=== PATIENT | female | born 1995 | race Caucasian/White ===

== ENCOUNTER 2018-01-23 07:44 | Inpatient (IN) | payer OTHER ==
[2018-01-22 10:33] LABS: RPR Titer ND
[2018-01-22 10:37] LABS: Absolute Lymphocytes (CBC) 1.9 K/uL (0.7-4.9); Absolute Monocytes 0.4 K/uL (0.1-1.3); Absolute Neutrophil 5.6 K/uL (1.8-8.0); Basophils % 2.4 % (0-1.3); Eosinophils % 1.6 % (0-4.4); Hematocrit 35.5 % (36.0-45.0); Lymphocytes % 23.4 % (15.3-44.8); MCH 28.1 pg (27.0-35.0); MCV 82.6 fL (80-100); MPV 8.6 fL (7.6-11.3); Monocytes % 4.6 % (3.3-12.3); Urine Appearance CLOUDY; Urine Bilirubin NEGATIVE (NEG); Urine Blood NEGATIVE (NEG); Urine Color YELLOW; Urine Glucose NEGATIVE (NEG); Urine Protein NEGATIVE (NEG); Urine Specific Gravity 1.025 (1.005-1.030)
[2018-01-22 10:47] LABS: Urine Microscopic Reflex ORDER UMIC
[2018-01-22 10:48] LABS: Urine Bacteria <20 /HPF (<20); Urine Culture Reflex Order NOT NEEDED; Urine Mucus 2+ /HPF (NONE SEEN); Urine RBC <5 /HPF (NONE SEEN)
[2018-01-22 20:36] LABS: RPR (Rapid Plasma Reagin) NON-REACT (NON-REACT)
[~2018-01-23 07:44] MED LIST: CEFAZOLIN/SWI 1gm 1 GM/10 ML SYR IVP SCH
--- OUTSIDE RECORDS SUMMARY | 2018-01-23 07:46 | XMS REPORT ---
:1995 Author Organization eClinicalWorks Care Team Providers Name Role Phone Tom Butler Provider Role Unavailable Allergies No Known Allergies Problems Problem Type Condition Code Onset Dates Condition Status Assessment Pelvic and perineal pain R10.2 Active Problem Pelvic and perineal pain R10.2 Active Problem Encounter for supervision of normal Z34.03 Active first in third trimester Problem Other specified related O26.893 Active conditions, third trimester Assessment Encounter for supervision of normal Z34.03 Active first in third trimester Assessment Other specified related O26.893 Active conditions, third trimester Problem Stasis dermatitis of both legs I87.2 Active Problem Encounter for supervision of normal Z34.02 Active first in second trimester Medications Medication Code Code Instructions Start End Status Dosage System Date Date CitraNatal 90 [facility] [id number] 90-1 & 300 MG October Active as directed DHA Orally once 2017 daily Results No Known Results Summary Purpose [facility] Submission
--- OUTSIDE RECORDS SUMMARY | 2018-01-23 07:46 | XMS REPORT ---
[...] Status Dosage System Date Date CitraNatal 90 [facility] [id number] 90-1 & 300 MG October Active as directed DHA Orally once 2017 daily Results No Known Results Summary Purpose [employer] Submission
--- OUTSIDE RECORDS SUMMARY | 2018-01-23 07:46 | XMS REPORT ---
[...] Status Dosage System Date Date CitraNatal 90 [facility] [id number] 90-1 & 300 MG October Active as directed DHA Orally once 2017 daily Results No Known Results Summary Purpose [employer] Submission
--- OUTSIDE RECORDS SUMMARY | 2018-01-23 07:46 | XMS REPORT ---
:1995 Author Organization eClinicalWorks Care Team Providers Name Role Phone Tom Butler Provider Role Unavailable Allergies No Known Allergies Problems Problem Type Condition Code Onset Dates Condition Status Problem Pelvic and perineal pain R10.2 Active Problem Encounter for supervision of normal Z34.03 Active first in third trimester Problem Other specified related O26.893 Active conditions, third trimester Problem Stasis dermatitis of both legs I87.2 Active Problem Encounter for supervision of normal Z34.02 Active first in second trimester Medications No Known Medications Results No Known Results Summary Purpose [employer] Submission
--- OUTSIDE RECORDS SUMMARY | 2018-01-23 07:46 | XMS REPORT ---
:1995 Author Organization e[employer]Works Care Team Providers Name Role Phone Tom Butler Provider Role Unavailable Allergies No Known Allergies Problems Problem Type Condition Code Onset Dates Condition Status Assessment Other specified related O26.893 Active conditions, third trimester Assessment Stasis dermatitis of both legs I87.2 Active Assessment Encounter for supervision of normal Z34.03 Active first in third trimester Assessment Pelvic and perineal pain R10.2 Active Problem Pelvic and perineal pain R10.2 Active Problem Encounter for supervision of normal Z34.03 Active first in third trimester Problem Other specified related O26.893 Active conditions, third trimester Assessment Encounter for supervision of normal Z34.93 Active in third trimester, unspecified Assessment Encounter for supervision of normal Z34.02 Active first in second trimester Problem Stasis dermatitis of both legs I87.2 Active Problem Encounter for supervision of normal Z34.02 Active first in second trimester Medications Medication Code Code Instructions Start End Status Dosage System Date Date CitraNatal 90 [facility] [id number] 90-1 & 300 MG October Active as directed DHA Orally once 2017 daily Results No Known Results Immunizations Vaccine Administration Date TDAP > 7 Years-Adacel January 04, 2018 Summary Purpose [employer]ClinicalWorks Submission
--- OUTSIDE RECORDS SUMMARY | 2018-01-23 07:46 | XMS REPORT ---
:1995 Author Organization eClinicalWorks Care Team Providers Name Role Phone Tom Butler Provider Role Unavailable Allergies No Known Allergies Problems Problem Type Condition Code Onset Dates Condition Status Assessment Encounter for supervision of Z34.03 Active normal first in third trimester Assessment Encounter for supervision of Z34.02 Active normal first in second trimester Assessment Stasis dermatitis of both legs I87.2 Active Problem Other specified related O26.893 Active conditions, third trimester Problem Pelvic and perineal pain R10.2 Active Problem Breech presentation, single or O32.1XX0 Active unspecified fetus Problem Encounter for supervision of Z34.02 Active normal first in second trimester Assessment Encounter for supervision of Z34.93 Active normal in third trimester, unspecified Problem Encounter for supervision of Z34.03 Active normal first in third trimester Problem Stasis dermatitis of both legs I87.2 Active Assessment Breech presentation, single or O32.1XX0 Active unspecified fetus Assessment Pelvic and perineal pain R10.2 Active Assessment Other specified related O26.893 Active conditions, third trimester Medications Medication Code Code Instructions Start End Status Dosage System Date Date CitraNatal 90 [facility] [id number] 90-1 & 300 MG October Active as directed DHA Orally once 2017 daily Results No Known Results Summary Purpose [employer]ClinicalWorks Submission
--- OUTSIDE RECORDS SUMMARY | 2018-01-23 07:46 | XMS REPORT ---
[...] Status Dosage System Date Date CitraNatal 90 [facility] [id number] 90-1 & 300 MG October Active as directed DHA Orally once 2017 daily Results No Known Results Summary Purpose eClinicalWorks Submission
[2018-01-23] MEDS ORDERED: Ringers Lactate 1,000 ML IV PRN (07:48)
[2018-01-23] MEDS ORDERED: NA CIT/CITRIC AC 30 ML ORAL UDC PO ONE (07:50)
[2018-01-23] MEDS ORDERED: FAMOTIDINE 20 MG/2 ML VIAL IV ONE (07:52)
[2018-01-23] MEDS ORDERED: METOCLOPRAMIDE 10 MG/2mL INJ IV SCH (08:00)
[2018-01-23] MEDS ORDERED: Ringers Lactate 1,000 ML IV SCH (08:00)
[2018-01-23 09:19] VITALS: BMI 35.3
[2018-01-23] MEDS ORDERED: OXYTOCIN 10 UNIT/ML ML IV ONE ×2 (09:53→10:52)
[2018-01-23] MEDS ORDERED: MORPHINE SULFATE/PF 1 MG/ML (10 ML AMP) ONE (09:53)
[2018-01-23] MEDS ORDERED: Oxycodone HCl/Acetaminophen 1 TAB TAB PO PRN (11:12)
[2018-01-23] MEDS ORDERED: METHYLERGONOVINE 0.2 MG TAB PO PRN (11:12)
[2018-01-23] MEDS ORDERED: MEASLES,MUMPS,RUBELLA VAC 0.5ML SQVAC ONE (11:12)
[2018-01-23] MEDS ORDERED: ONDANSETRON 4 MG (ODT) TAB PO PRN (11:12)
[2018-01-23] MEDS ORDERED: ACETAMINOPHEN 500 MG TAB PO PRN (11:12)
[2018-01-23] MEDS ORDERED: DOCUSATE NA/SENNA CONC 1 TAB PO PRN (11:12)
[2018-01-23] MEDS ORDERED: ZOLPIDEM TARTRATE 5 MG TABLET PO PRN (11:12)
[2018-01-23] MEDS ORDERED: BISACODYL 10 MG RECTAL SUPP RECT PRN (11:12)
--- NOTE | 2018-01-23 11:29 | P.OP ---
Chief Fundraising Officer: Kerrie Marquis Preoperative diagnosis: 39 weeks gestation with Breech presentation Postoperative diagnosis: same Primary procedure: Primary low transverse section Secondary procedure: none Anesthesia: Spinal Estimated blood loss: 800cc Specimen: cord blood, placenta Findings: male infant, bethany breech presentation Operative Technique: After informed consent was obtained and all questions were answered to the patient's satisfaction in layman's terms, she was taken to the operating room where a spinal with Astramorph anesthesia was obtained without any difficulty. She was placed in the dorsal supine position with a leftward tilt and prepped and draped in the usual sterile fashion. A Pfannenstiel skin incision was made and then carried down to the underlying layer of fascia with a knife. The fascia was excised in the midline extended laterally with the Lux scissors. The superior aspect of the fascial incision was then tented up with Leon clamps and the underlying rectus muscle dissected off sharply with the Metzenbaum scissors.The anterior aspect of the fascial incision was then tented up with Leon clamps and the underlying rectus muscle dissected off sharply as well as bluntly. The rectus muscle superiorly was opened with a hemostat. The peritoneum was identified and entered bluntly digitally. The bladder blade was inserted and vesicouterine peritoneum was identified and tented up with Allis clamps and bladder flap was created sharply with the Metzenbaum scissors and digitally. The bladder blade was then reinserted to protect the bladder and the uterine incision was made with a knife and then extended laterally manually. The amniotic fluid was noted to be clear. At this point, upon examining the intrauterine contents, the baby was noted to be Bethany breech. The hips were first delivered and then the feet. The baby was delivered to the level of the scapula and then the arms were gently swept across the chest and delivered. The head was then gently brought through the incision. The cord was clamped and cut and the baby was then handed off to awaiting nursery nurse. The placenta cord blood was obtained and the placenta was then manually extracted from the uterus. The uterus was exteriorized and cleared of all clots and debris. Then, the uterine incision was then closed with #0 Vicryl in a double closure stitch fashion, first layer in locking stitch fashion and the second layer an imbricating layer. The uterine incision was then once again inspected and noted to be hemostatic. The bladder flap was then replaced back into the uterus with #3-0 vicryl. The rectus muscles were reapproximated. The fascia was then closed with #0 Vicryl in a running fashion. The subcutaneous layer was brought together with a 2.0 plain gut in interrupted sutures.. Then, the skin edges were reapproximated using 3.0 vicryl on a Sedrick needle. The patient tolerated the procedure well. Sponge, lap, and needle, counts were correct x2. The patient was taken to recovery in sable condition. She will be followed up throughout her hospital stay. Complications: None Drain(s): Urinary catheter Transferred to: Recovery Room Condition: Good
[2018-01-23] MEDS ORDERED: DIPHENHYDRAMINE 25 MG TAB/CAP PO PRN (11:43)
[2018-01-23] MEDS ORDERED: PROMETHAZINE 25 MG/ML VIAL IV PRN (18:40)
--- NOTE | 2018-01-23 20:51 | HP ---
Date of Admission: 01/23/2018 History Of Present Illness: Ingrid is a 23-year-old, 2, para 0-0-1-0, who presents at 39 wee ks gestation for a primary section. The patient has been scheduled for a primary s ection due to breech presentation. Breech presentation has been confirmed on multiple ultrasounds in the office and one performed here at the hospital. Recent vaginal exam performed in the office on T kristineakpam found breech presentation, 1-2 cm dilated but the patient was not having any pain or contract ions. She was given labor precautions. She reported good movements and no vaginal bleeding. The patient's care has been complicated by a severe eczema breakout which has lead to stasis dermatitis on her bilateral lower extremities. She is rubella nonimmune. She received her Tdap vac cine in the office. She is Rh positive, noninvasive. testing revealed low risk male , carrier screen was negative. She has been compliant with all visits. See record for further details. Past Medical History: Significant for eczema, atopic dermatitis. Past Surgical History: She had a D and C in September of 2015. Social History: No tobacco, alcohol, or drug use. She is to the father of the baby. She wo rks. Family History: Noncontributory. Physical Examination: Vital Signs: On admission; blood pressure 125/76, pulse is 70, respirations 18, temperature 98.0. General: The patient resting comfortably in bed. Head and neck: Normocephalic, atraumatic. Heart: Regular rate and rhythm. Respiratory: Symmetric, nonlabored breathing bilaterally. Abdomen: Gravid. Extremities: Bilateral lower extremities, +1 edema, eczema noted. Vaginal: Normal external female genitalia. Vagina is pink and moist. Cervix: 1-2 cm dilated, nestor ch presentation. Laboratory Data: White blood cell count 8.2, hemoglobin 12.1, hematocrit 35.5, platelet count 229. Urine protein is negative. Assessment And Plan: Ingrid is a 23-year-old 2, para 0-0-1-0 at 39 weeks gestation with nestor ch presentation, presents today for a primary section. A spinal anesthesia will be performe d. Ancef has been given prior to incision. Routine postoperative care. /TIESHA Voice ID: [id number]
[2018-01-24] MEDS: KETOROLAC 30 MG/ML INJ IV PRN ×2 (00:55→12:25)
[2018-01-24 05:05] LABS: Absolute Lymphocytes (CBC) 2.1 K/uL (0.7-4.9); Absolute Monocytes 0.7 K/uL (0.1-1.3); Absolute Neutrophil 8.4 K/uL (1.8-8.0); Basophils % 0.5 % (0-1.3); Eosinophils % 0.4 % (0-4.4); Lymphocytes % 18.9 % (15.3-44.8); MCH 28.3 pg (27.0-35.0); MCV 83.1 fL (80-100); MPV 8.7 fL (7.6-11.3); Monocytes % 6.2 % (3.3-12.3); RBC Red Blood Cell Count 3.73 M/uL (3.86-4.86)
[2018-01-24] MEDS: Oxycodone HCl/Acetaminophen 1 TAB TAB PO PRN ×3 (05:25→21:15)
[2018-01-24] MEDS ORDERED: MEASLES,MUMPS,RUBELLA VAC 0.5ML SQVAC ONE (05:25)
[2018-01-24] MEDS: FERROUS SULFATE 325 MG TAB PO SCH (11:13)
[2018-01-24] MEDS: PRENATAL VITAMIN PO SCH (11:13)
[2018-01-24] MEDS ORDERED: PRENATAL VITAMIN PO ONE (11:17)
[2018-01-24] MEDS ORDERED: FERROUS SULFATE 325 MG TAB PO ONE (11:17)
[2018-01-25] MEDS: Oxycodone HCl/Acetaminophen 1 TAB TAB PO PRN ×2 (01:34→07:17)
[2018-01-25 07:43] VITALS: BP 109/61; TEMP 97.8
[2018-01-25] MEDS: PRENATAL VITAMIN PO SCH (09:00)
[2018-01-25] MEDS: FERROUS SULFATE 325 MG TAB PO SCH (09:00)
--- NOTE | 2018-01-25 16:49 | P.DS ---
Admission Date: 01/23/18 Discharge Date: 01/25/18 Disposition: ROUTINE DISCHARGE Discharge Condition: GOOD Brief History of Present Illness: see h&p Hospital Course: Patient did well following surgery. Her pain is well controlled. She is stable for discharge home. Vital Signs/Physical Exam: Temp Pulse Resp BP Pulse Ox 97.8 F 79 18 109/61 01/25/18 07:20 01/25/18 07:20 01/25/18 07:20 01/25/18 07:20 General: Alert, In no apparent distress HEENT: Atraumatic Neck: Supple Respiratory: Normal air movement Gastrointestinal: Soft and benign, Other (incision - clean, dry, intact ), Tenderness Integumentary: No rashes, No breakdown Neurological: Normal gait, Normal speech Laboratory Data at Discharge: WBC 11.3 K/uL (4.3-10.9) H D 01/24/18 04:34 Hgb 10.5 g/dL (12.0-15.0) L 01/24/18 04:34 Hct 31.0 % (36.0-45.0) L 01/24/18 04:34 Plt Count 186 K/uL (152-406) 01/24/18 04:34 Home Medications: Pnv72/Iron,Carb&Glu/FA/Dss/Dha [Citranatal 90 Dha Combo Pack] 1 tom PO DAILY Codeine/APAP [Tylenol W/Codeine #3 tab] 1 tab PO Q6HP PRN #20 tab 01/25/18 New Medications: Codeine/APAP [Tylenol W/Codeine #3 tab] 1 tab PO Q6HP PRN #20 tab PRN Reason: Pain Diet: Regular Activity: No lifting more than 10 lbs Followup: Tom Butler DO [ACTIVE - CAN ADMIT] - (Follow up care with Dr. Butler in 6 weeks.)
--- NOTE | 2018-01-25 16:49 | P.PN ---
Date of Service: 01/24/18 Patient is doing well on postop day 1 after primary section. Patient states that her pain is well managed. She is ambulating well. She has voided since the ying catheter was removed. She is tolerating a regular diet - no further nausea or vomiting. Selected Entries 01/24/18 01/24/18 07:46 07:48 Temperature 96.9 F Pulse Rate 71 Respiratory 16 Rate Blood Pressure 103/56 L Pain Level 0 Laboratory Tests 01/24/18 04:34 WBC 11.3 H D Hgb 10.5 L Hct 31.0 L Plt Count 186 GEN: resting comfortably in bed Head/Neck: NCAT/supple Resp: symmetric non-labored breathing ABD: soft, tender, good bowel sounds; incision dressing in place - no oozing Extem: bilateral edema +1 A/P 23 y/o s/p primary section due to breech presentation on post op day 1 doing well. - Ying has been removed - IV will be removed - encourage ambulation - pain management with PO meds. - anticipate d/c home tomorrow
[2018-01-26 03:31] LABS: HBsAG Nonreactive (Nonreactive)
== END 2018-01-25 11:10 | disposition home or self-care (01) | DRG 766 ==
LOC: 2ND-WC 07:44
PROVIDERS: ADMIT Student in an Organized Health Care Education/Training Program; ATTEND Student in an Organized Health Care Education/Training Program
PROC: 10D00Z1 Extraction of Products of Conception, Low, Open Approach (ICD-10-PCS; principal; 2018-01-23 09:00)
DX: O32.1XX0 Maternal care for breech presentation, not applicable or unspecified (principal); Z3A.39 39 weeks gestation of pregnancy; Z37.0 Single live birth; Z23 Encounter for immunization
CPT/HCPCS: 36415; 81003; 81015; 85025; 86592; 86850; 86900; 86901; 87340; 88307; 90707; J0690; J2550; J2590; J2765

== ENCOUNTER 2020-05-01 17:53 | Emergency (ER) | payer OTHER ==
--- OUTSIDE RECORDS SUMMARY | 2020-05-01 17:56 | XMS REPORT | Continuity of Care Document ---
:1995 Author Organization [facility] t Address [address] [place] [address] Care Team Providers Name Role Phone Hari Wolfe Attending Clinician VISIT, TMO Attending Clinician Unavailable Ebony Attending Clinician Hari Wolfe Admitting Clinician Problems Condition Condition Condition Status Onset Resolution Last Treating Co mments Source Name Details Category Date Date Treatment Clinician Date C SECTION Diagnosis Active 2020-04-28 Memoria 9-14 15:07:00 l C 00:00: [place] SECTION 00 Active 04/21/2020 [facility] DIZZINESS Diagnosis Active 2020-01-01 Memoria 5-26 14:13:00 l 00:00: [place] DIZZINESS 00 Active 01/01/2020 [facility] Pelvic and Pelvic and Problem Active [facility] Clinics Encounter Encounter Problem [facility] - supervisio supervisio Me moria n of n of l normal normal Outpati first first ent Clin ics in third in third trimester trimester Other Other Problem Active [facility] specified [facility] - Iraj mary related related l conditions conditions Ou tpati , third , third ent trimester trimester Clin ics Stasis Stasis Problem Active [facility] dermatitis dermatitis Daily kes - of both of both Memoria legs legs l Outpati ent Clinics Encounter Encounter Problem Active [facility] - supervisio supervisio Me moria n of n of l normal normal Outpati first first ent Clin ics in second in second trimester trimester Breech Breech Problem Active [facility] presentati presentati Daily kes - on, single on, single Me moria or or l unspecifie unspecifie Ou tpati d fetus d fetus ent Clinics Encounter Encounter Problem [facility] - initial initial Memoria prescripti prescripti l on of on of Outpati contracept contracept en t gi pills gi pills Clin ics Encounter Encounter Problem Active [facility] - routine routine Memoria l follow-up follow-up Outp ati ent Clinics Maternal Problem 2019-2020-04-19 2020-04-19 Memoria care for 04-16 00:03:49 00:03:49 l unspecifie Maternal 17:40: He rmann d type care for 00 scar from unspecifie previous d type scar from delivery previous delivery 0 04/19/2020 [facility] 38 weeks Problem 2020-04-19 2020-04-19 Memoria gestation 04-16 00:03:49 00:03:49 l of 38 weeks 17:37: [place] gestation 00 of 04/16/2020 04/19/2020 [facility] History of Problem 2020-04-11 2020-04-11 Memoria uterine 04-09 23:56:34 23:56:34 l scar from History 19:17: Herm deangelo previous of uterine 00 surgery scar from previous surgery 04/09/2020 04/11/2020 [facility] Dizziness Problem 2020-01-03 2020-01-03 Memoria and 12-31 22:01:49 22:01:49 l giddiness 17:00: [place] Dizziness 00 and giddiness 01/01/2020 01/03/2020 [facility] History of Past Illness Condition Condition Condition Status Onset Resolution Last Treating Co mments Source Name Details Category Date Date Treatment Clinician Date Patient Problem Resolve 2020-04-28 2020-04-28 Memoria currently d 08-08 07:15:38 07:15:38 l Patient 00:00: Yajaira nn (finding) currently 00 (finding) Resolved 08/08/2017 Problem 04/28/2020 [facility] Group,[facility] Allergies, Adverse Reactions, Alerts Allergy Allergy Status Severity Reaction(s) Onset Inactive Treating Comm ents Source Name Type Date Date Clinician No Known No Known Active Memori a Medicati Medicati l on on [place] Allergnona Pérez s s Social History Smoking Status Start Date Stop Date Source Social History [facility] [place] Medications Ordered Filled Start Stop Current Ordering Indication Dosage Frequency Signature Comments Components Source Medication Medication Date Date Medication? Clinician (SIG) Name Name Docusate 0 Yes 100 mg = 1 Mem oria Sodium 100 9-17 cap, PO, l MG Oral 18:15: BID, PRN [place] Capsule 00 Constipati [Colace] on, # 60 cap, 0 Refill(s), Pharmacy: [facility] #[id number], 157.48, cm, 04/22/20 4:54:00 CDT, Height, 82.273, kg, 04/22/20 4:54:00 CDT, Weight ferrous Yes 325 mg = 1 Iraj mary sulfate 325 9-17 tab, PO, l mg oral 18:15: BID, give Yajaira nn enteric 00 with coated orange tablet juice, # 60 tab, 1 Refill(s), Pharmacy: [facility] #[id number], 157.48, cm, 04/22/20 4:54:00 CDT, Height, 82.273, kg, 04/22/20 4:54:00 CDT, Weight HPA Lanolin Yes See Memori a topical -17 Instructio l cream 18:15: ns, Apply [place] 00 to nipples PRN, # 2 ea, 3 Refill(s), Pharmacy: [facility] #[id number], 157.48, cm, 04/22/20 4:54:00 CDT, Height, 82.273, kg, 04/22/20 4:54:00 CDT, Weight Motrin 600 Yes 600 mg = 1 M emoria mg oral -17 tab, PO, l tablet 18:15: Q6H, PRN [place] 00 Pain, take with food, X 10 day, # 40 tab, 0 Refill(s), Pharmacy: [facility] #[id number], 157.48, cm, 04/22/20 4:54:00 CDT, Height, 82.273, kg, 04/22/20 4:54:00 CDT, Weight Acetaminoph 2019- Yes 1-2 tab, Me moria en 325 MG / -17 PO, Q4-6H, l Hydrocodone 18:15: PRN Pain, H ermann Bitartrate 00 X 5 day, # 5 MG Oral 30 tab, 0 Tablet Refill(s), [[facility]: 325] [facility] #[id number], 157.48, cm, 04/22/20 4:54:00 CDT, Height, 82.273, kg, 04/22/20 4:54:00 CDT, Weight simethicone Yes 125 mg = 1 Memoria 125 mg oral 9-17 tab, CHEW, l tablet, 18:15: QID, X 12 Yajaira nn chewable 00 day, # 48 tab, 0 Refill(s), Pharmacy: [facility] #[id number], 157.48, cm, 04/22/20 4:54:00 CDT, Height, 82.273, kg, 04/22/20 4:54:00 CDT, Weight Ibuprofen No Notes: Memori a 16 (Same as: l 17:00: Motrin) [place] 00 "Do Not Crush" Take with food. No 1 tab, Memoria Multivitami 04-23 Route: PO, l ns oral 14:00: Drug Form: Herm deangelo tablet 00 TAB, Dosing Weight 82.273, kg, Daily, Start date: 04/23/20 9:00:00 CDT, Duration: 30 day, Stop date: 05/22/20 9:00:00 CDT, 0 Acetaminoph No Notes: Do M emoria en 16 not exceed l 13:37: 4 gm/day. [place] 00 (Same as: Tylenol) Acetaminoph No Notes: Iraj mary en 325 MG / 04-23 (Same as: l Hydrocodone 13:37: [place] Yajaira nn Bitartrate 00 325/5) Do 5 MG Oral not exceed Tablet 4gm/day of acetaminop hen. Acetaminoph No Notes: Do M emoria en 325 MG / 16 not exceed l Hydrocodone 13:37: 4gm/day of [place] Bitartrate 00 acetaminop 10 MG Oral hen. Tablet (Same as: [place] 325/10) Ondansetron No Notes: Iraj mary -16 (Same as: l 13:37: Zofran) [place] 00 MEDICATION WASTE Product Size: 4 mg Product Wasted: ___ mg Saline No Notes: Memoria Flush 0.9% 9-16 (Same as: l 02:00: BD Posiflush) Calcium 2019- No 500 mL, Memoria Chloride 9-15 500 ml/hr, l 0.0014 18:44: Infuse [place] MEQ/ML / 00 Over: 1 Potassium hr, Route: Chloride IV, 500, 0.004 Drug form: MEQ/ML / INJ, ONCE, Sodium Priority: Chloride STAT, 0.103 Dosing MEQ/ML / Weight Sodium 82.273 kg, Lactate Start 0.028 date: MEQ/ML 04/22/20 Injectable 13:44:00 Solution CDT, Stop date: 04/22/20 13:44:00 CDT, 0 M-M-R II No Notes: Memoria 04-22 (Same as: l 17:00: M-M-R II) (measles-m umps-rubel la virus vaccine 0.5 ml INJ VL) WASTE: F/P - Red; E -Red GIVE PRIOR TO DISCHARGE Calcium No 1,000 mL, Memor ia Chloride 9-15 1,000 l 0.0014 17:00: ml/hr, [place] MEQ/ML / 00 Infuse Potassium Over: 1 Chloride hr, Route: 0.004 IV, 1,000, MEQ/ML / Drug form: Sodium INJ, Chloride ONCALL, 0.103 Dosing MEQ/ML / Weight Sodium 82.273 kg, Lactate Start 0.028 date: MEQ/ML 04/22/20 Injectable 12:00:00 Solution CDT, Duration: 1 day, Stop date: 04/23/20 11:59:00 CDT, For OB hemorrhage per physician direction, 0 Oxytocin No Notes: Memoria 04-22 (Same as: l 17:00: Pitocin) Hazardous Drug Group 3:Reproduc tive risk Hazardous Drug -- Refer to safe handling procedure PPE Matrix Misoprostol No Notes: Iraj mary 04-22 (Same l 17:00: as:Cytotec ) Hazardous Drug Group 3:Reproduc tive risk Hazardous Drug -- Refer to safe handling procedure PPE Matrix Take with food Methylergon No Notes: Iraj mary ovine 9-15 (Same l 17:00: as:Metherg ine) Hazardous Drug Group 3:Reproduc tive risk Hazardous Drug -- Refer to safe handling procedure PPE Matrix Atropine No Notes: Memoria Sulfate -15 (Same As: l 0.025 MG / 17:00: Lomotil) kumar Diphenoxyla 00 MAX Adult te dose = 8 Hydrochlori tabs/day de 2.5 MG Oral Tablet Carboprost No Notes: Memor ia -15 (Same As: l 17:00: Hemabate) Tranexamic No Notes: Memor ia Acid -15 (Same As: l 17:00: Cyklokapro n) Ibuprofen Yes Notes: Memori a -15 (Same as: l 17:00: Motrin) "Do Not Crush" Take with food. Lactated No 1,000 mL, Iraj mary Ringers IV 04-22 Rate: 125 l 1,000 mL 16:23: ml/hr, Infuse over: 8 hr, Route: IV, Dosing Weight 82.273 kg, Total Volume: 1,000, see special instructio n for rate while completing infusion from recovery for the 20U of Oxytocin., Start date: 04/22/20 11:23:00 CDT, Duration: 30 d... Bisacodyl No Notes: Memori a -15 (Same As: l 16:23: Dulcolax, Correctol) (Do Not Crush) "Do Not Crush" Docusate No Notes: Memoria -15 (Same as: l 16:23: Colace) (Do Not Crush) lanolin No 1 appl, Memoria topical 04-22 Route: l cream 16:23: TOP, PRN, Drug form: OINT, PRN Other -See Comment, Start date: 04/22/20 11:23:00 CDT, Duration: 30 day, Stop date: 05/22/20 11:22:00 CDT, 0 Simethicone No Notes: Iraj mary 9-15 (Same as: l 16:23: Mylicon) Oxytocin No Notes: Memoria 9-15 Hazardous l 16:23: Drug Group 3:Reproduc tive risk Hazardous Drug -- Refer to safe handling procedure PPE Matrix Saline No Notes: Memoria Flush 0.9% 04-22 (Same as: l 16:23: BD Posiflush) Naloxone No Notes: Memoria 915 Same as l 14:00: Narcan ketOROLAC No IV, ONCE Iraj mary (ANES) -15 l 13:59: bupivacaine No Route: Iraj mary (ANES) 04-22 INTRATHECA l 13:34: L, Drug Form: INJ, ONCE, Stop date: 04/22/20 8:34:00 CDT fentaNYL No Route: Memoria (ANES) 04-22 INTRATHECA l 13:34: L, Drug form: INJ, ONCE, Stop date: 04/22/20 8:34:00 CDT morphine No Route: Memoria Sulfate 04-22 INTRATHECA l (ANES) 13:34: L, Drug form: INJ, ONCE, Stop date: 04/22/20 8:34:00 CDT ondansetron No Route: IV, Memoria (ANES) 04-22 Drug form: l 13:29: INJ, ONCE, Stop date: 04/22/20 8:29:00 CDT metoclopram No Route: IV, Memoria zi (ANES) 04-22 Drug form: l 13:29: INJ, ONCE, Stop date: 04/22/20 8:29:00 CDT ceFAZolin No Route: IV, Me moria (ANES) 04-22 Drug form: l 13:24: INJ, ONCE, Stop date: 04/22/20 8:24:00 CDT famotidine No Route: IV, M emoria (ANES) 04-22 Drug form: l 13:24: INJ, ONCE, Stop date: 04/22/20 8:24:00 CDT sodium No Route: PO, Memor ia citrate 04-22 Drug Form: l (ANES) 13:24: INJ, ONCE, Yajaira nn Stop date: 04/22/20 8:24:00 CDT oxytocin 0 No Route: IV, Mem oria (ANES) 30 04-22 Drug form: l unit 13:13: SOLN, [place] Start date: 04/22/20 8:13:00 CDT, Stop date: 04/22/20 9:13:00 CDT Acetaminoph Yes Notes: Max Memoria en 04-22 acetaminop l 13:02: hen 4000 [place] mg/day (4 gm/day). (Same as: Tylenol Extra Strength) Oxycodone No Notes: Memori a Hydrochlori 04-22 (Same as: l de 5 MG 13:02: Roxicodone Herm deangelo Oral Tablet ) Hydrocodone No Notes: Iraj mary Bitartrate 04-22 (Same as: l 7.5 MG / 13:02: Vicoprofen Her kumar Ibuprofen ) 200 MG Oral Tablet [Vicoprofen ] Hydromorpho 0 No Notes: Iraj mary ne 04-22 Same as l 13:02: Dilaudid Ondansetron No Notes: Iraj mary - (Same as: l 13:02: Zofran) MEDICATION WASTE Product Size: 4 mg Product Wasted: ___ mg Promethazin No Notes: Do M emoria e 04-22 not give l 13:02: IV push. (Same as: Phenergan) Nalbuphine 0 No 2 mg, Memori a 04-22 Route: l 13:02: IVP, Q2H, [place] Dosing Weight 82.273, kg, PRN Itching, Start date: 04/22/20 8:02:00 CDT, Duration: 5 doses or times, Stop date: Limited # of times Meperidine 0 Yes Notes: Memor ia - (Same as: l 13:02: Demerol) "Use Precaution in Elderly, Seizure disorders, and Renal impairment " Benadryl No Notes: Memoria -15 (Same as: l 13:02: Benadryl) phenylephri No Route: IV, Memoria ne (ANES) 04-22 Drug form: l 100 12:46: INJ, Start [place] microgram 00 date: 04/22/20 7:46:00 CDT, Stop date: 04/22/20 8:46:00 CDT azithromyci No Route: IV, Memoria n (ANES) 04-22 Drug form: l 500 mg 12:41: INJ, Start Yajaira nn 00 date: 04/22/20 7:41:00 CDT, Stop date: 04/22/20 8:41:00 CDT Lactated No Route: IV, Mem oria Ringers - Total l Injection 12:38: Volume: Yajaira nn IV (ANES) 00 1,000, 1000 mL Start date: 04/22/20 7:38:00 CDT, Stop date: 04/22/20 8:38:00 CDT Calcium No 1,000 mL, Memor ia Chloride 15 1,000 l 0.0014 11:00: ml/hr, MEQ/ML / 00 Infuse Potassium Over: 1 Chloride hr, Route: 0.004 IV, 1,000, MEQ/ML / Drug form: Sodium INJ, Chloride ONCALL, 0.103 Dosing MEQ/ML / Weight Sodium 82.273 kg, Lactate Start 0.028 date: MEQ/ML 04/22/20 Injectable 6:00:00 Solution CDT, Duration: 1 doses or times, For OB hemorrhage per physician direction, 0 Oxytocin No Notes: Memoria -15 (Same as: l 11:00: Pitocin) Hazardous Drug Group 3:Reproduc tive risk Hazardous Drug -- Refer to safe handling procedure PPE Matrix Misoprostol No Notes: Iraj mary 04-22 (Same l 11:00: as:Cytotec ) Hazardous Drug Group 3:Reproduc tive risk Hazardous Drug -- Refer to safe handling procedure PPE Matrix Take with food Methylergon No Notes: Iraj mary ovine 04-22 (Same l 11:00: as:Metherg ine) Hazardous Drug Group 3:Reproduc tive risk Hazardous Drug -- Refer to safe handling procedure PPE Matrix Atropine No Notes: Memoria Sulfate -15 (Same As: l 0.025 MG / 11:00: Lomotil) Her kumar Diphenoxyla 00 MAX Adult te dose = 8 Hydrochlori tabs/day de 2.5 MG Oral Tablet Carboprost No Notes: Memor ia -15 (Same As: l 11:00: Hemabate) Tranexamic No Notes: Memor ia Acid -15 (Same As: l 11:00: Cyklokapro n) Calcium Yes 1,000 mL, Memor ia Chloride -15 1,000 l 0.0014 10:39: ml/hr, MEQ/ML / 00 Infuse Potassium Over: 1 Chloride hr, Route: 0.004 IV, 1,000, MEQ/ML / Drug form: Sodium INJ, ONCE, Chloride Dosing 0.103 Weight MEQ/ML / 82.273 kg, Sodium Start Lactate date: 0.028 04/22/20 MEQ/ML 5:39:00 Injectable CDT, Stop Solution date: 04/22/20 5:39:00 CDT, 0 oxytocin 30 No Notes: Iraj mary units in NS 9-15 Hazardous l 500 mL 10:39: Drug Group Yajaira nn (Bolus) IV 00 3:Reproduc 10.02 unit tive risk Hazardous Drug -- Refer to safe handling procedure PPE Matrix oxytocin 30 No Notes: Iraj mary units in NS 9-15 Hazardous l 500 mL IV 10:39: Drug Group He rmann 19.98 unit 00 3:Reproduc tive risk Hazardous Drug -- Refer to safe handling procedure PPE Matrix Morphine No Notes: Memoria -15 (Same l 10:39: as:MORPhin e Sulfate) Citric Acid Yes Notes: Iraj mary / sodium 15 (Same As: l citrate 10:39: Bicitra) Terbutaline No Notes: Iraj mary -15 DO NOT l 10:39: USE IN [employer]TOMET[employer]CHN[employer]IST AREA (Same As: Brethine) Famotidine Yes Notes: Memor ia -15 (Same as: l 10:39: Pepcid) Can be dilute in 5-10cc NS IVP: Slow IV push over at least 2 minutes. Ondansetron No Notes: Iraj mary 9-15 (Same as: l 10:39: Zofran) MEDICATION WASTE Product Size: 4 mg Product Wasted: ___ mg Metoclopram No Notes: Iraj mary zi 9-15 (Same as: l 10:39: Reglan) Oxytocin No Notes: Memoria 9-15 Hazardous l 10:39: Drug Group 3:Reproduc tive risk Hazardous Drug -- Refer to safe handling procedure PPE Matrix tetanus/dip No Notes: Iraj mary hth/pertuss 915 Therapeuti l (Tdap) 05:00: c [place] adult/adol 00 Interchang e for Boostrix Breast Pump Yes 1 ea, Memor ia Electric 6-29 MISC, l 18:01: Daily, # 1 [place] 00 ea, 0 Refill(s) ampicillin Yes 500 mg = 1 M emoria 500 mg oral 3-02 cap, PO, l capsule 12:25: QID, X 7 [place] 00 day, # 28 cap, 0 Refill(s), Pharmacy: [id number] PNV-DHA Yes PO, Daily, Iraj mary Plus 2-26 0 l 16:10: Refill(s) Norethin Norethin Yes Tom [address] [facility]- [facility] 00:00: [facility]ria 00 l [facility] CitraNatal CitraNatal Yes Tom as [facility] 90 DHA 90 DHA 3-12 [facility] directed [facility] - 00:00: [facility] 00 l [facility] Immunizations Ordered Filled Immunization Date Status Comments Sourc e Immunization Name Name TDAP > 7 TDAP > 7 2018-01-[address] [facility] - Years-Adacel Years-Adacel 00:00:00 [facility] Vital Signs Vital Name Observation Time Observation Value Comments Source Temperature Oral (F) 2020-04-24 17:20:00 97.8 F [facility] [place] Heart Rate 2020-04-24 17:20:00 [facility] [place] Respitory Rate 2020-04-24 17:20:00 Memori al [place] Systolic (mm Hg) 2020-04-24 17:20:00 Iraj rial [place] Diastolic (mm Hg) 2020-04-24 17:20:00 Mem orial [place] Temperature Oral (F) 2020-04-24 13:30:00 97.7 F [facility] [place] Heart Rate 2020-04-24 13:30:00 [facility] [place] Respitory Rate 2020-04-24 13:30:00 Memori al [place] Systolic (mm Hg) 2020-04-24 13:30:00 Iraj rial [place] Diastolic (mm Hg) 2020-04-24 13:30:00 Mem orial [place] Temperature Oral (F) 2020-04-24 09:05:00 98.0 F [facility] [place] Heart Rate 2020-04-24 09:05:00 [facility] [place] Respitory Rate 2020-04-24 09:05:00 Memori al [place] Systolic (mm Hg) 2020-04-24 09:05:00 Iraj rial [place] Diastolic (mm Hg) 2020-04-24 09:05:00 Mem orial [place] Height 2020-04-22 09:54:00 157.48 cm [facility] [place] Weight 2020-04-22 09:54:00 [facility] [place] BMI Calculated 2020-04-22 09:54:00 Memori al [place] Height 2020-04-16 14:50:00 154.94 cm [facility] [place] Systolic (mm Hg) 2020-04-16 14:50:00 Iraj rial [place] Diastolic (mm Hg) 2020-04-16 14:50:00 Mem orial [place] Heart Rate 2020-04-16 14:50:00 [facility] [place] Weight 2020-04-16 14:50:00 [facility] [place] BMI Calculated 2020-04-16 14:50:00 Memori al [place] Height 2020-04-09 14:01:00 154.94 cm [facility] [place] Systolic (mm Hg) 2020-04-09 14:01:00 Iraj rial [place] Diastolic (mm Hg) 2020-04-09 14:01:00 Mem orial [place] Heart Rate 2020-04-09 14:01:00 [facility] [place] Weight 2020-04-09 14:01:00 [facility] [place] BMI Calculated 2020-04-09 14:01:00 Memori al [place] Height 2020-03-26 20:04:00 154.94 cm [facility] [place] Systolic (mm Hg) 2020-03-26 20:04:00 Iraj rial [place] Diastolic (mm Hg) 2020-03-26 20:04:00 Mem orial [place] Heart Rate 2020-03-26 20:04:00 [facility] [place] Weight 2020-03-26 20:04:00 [facility] [place] BMI Calculated 2020-03-26 20:04:00 Memori al [place] Systolic (mm Hg) 2020-02-06 16:06:00 Riaj rial [place] Diastolic (mm Hg) 2020-02-06 16:06:00 Mem orial [place] Heart Rate 2020-02-06 16:06:00 [facility] [place] Height 2020-02-06 16:06:00 157.48 cm [facility] [place] Weight 2020-02-06 16:06:00 [facility] [place] BMI Calculated 2020-02-06 16:06:00 Memori al [place] Height 2020-01-09 13:45:00 154.94 cm [facility] [place] Systolic (mm Hg) 2020-01-09 13:45:00 Iraj rial [place] Diastolic (mm Hg) 2020-01-09 13:45:00 Mem orial [place] Heart Rate 2020-01-09 13:45:00 [facility] [place] Weight 2020-01-09 13:45:00 [facility] [place] BMI Calculated 2020-01-09 13:45:00 Memori al [place] Respitory Rate 2020-01-01 21:00:00 Memori al [place] Systolic (mm Hg) 2020-01-01 21:00:00 Iraj rial [place] Diastolic (mm Hg) 2020-01-01 21:00:00 Mem orial [place] Heart Rate 2020-01-01 21:00:00 [facility] [place] Temperature Oral (F) 2020-01-01 21:00:00 96 F [facility] [place] Height 2020-01-01 18:24:00 157.48 cm [facility] [place] BMI Calculated 2020-01-01 18:24:00 Memori al [place] Weight 2020-01-01 18:24:00 [facility] [place] Systolic (mm Hg) 2020-01-01 18:24:00 Iraj rial [place] Diastolic (mm Hg) 2020-01-01 18:24:00 Mem orial [place] Heart Rate 2020-01-01 18:24:00 [facility] [place] Respitory Rate 2020-01-01 18:24:00 Memori al [place] Temperature Oral (F) 2020-01-01 18:24:00 98.0 F [facility] [place] Systolic (mm Hg) 2019-12-12 14:51:00 Iraj rial [place] Diastolic (mm Hg) 2019-12-12 14:51:00 Mem orial [place] Heart Rate 2019-12-12 14:51:00 [facility] [place] Height 2019-12-12 14:51:00 157.48 cm [facility] [place] Weight 2019-12-12 14:51:00 [facility] [place] BMI Calculated 2019-12-12 14:51:00 Memori al [place] Height 2019-10-31 14:22:00 154.94 cm [facility] [place] Systolic (mm Hg) 2019-10-31 14:22:00 Iraj rial [place] Diastolic (mm Hg) 2019-10-31 14:22:00 Mem orial [place] Heart Rate 2019-10-31 14:22:00 [facility] [place] Weight 2019-10-31 14:22:00 [facility] [place] BMI Calculated 2019-10-31 14:22:00 Memori al [place] Systolic (mm Hg) 2019-10-03 16:08:00 Iraj rial [place] Diastolic (mm Hg) 2019-10-03 16:08:00 Mem orial [place] Heart Rate 2019-10-03 16:08:00 [facility] [place] Height 2019-10-03 16:08:00 154.94 cm [facility] [place] Weight 2019-10-03 16:08:00 [facility] [place] BMI Calculated 2019-10-03 16:08:00 Memori al [place] Procedures Procedure Date / Time Performed Performing Clinician [facility] e section [facility] [place] Encounters Start End Encounter Admission Attending Care Care Encounter Source Date/Time Date/Time Type Type Clinicians Facility Department ID 2020-04-22 Inpatient [facility] [id number] [facility] 04:37:00 2020-04-22 2020-04-24 Outpatient [facility] [id number] 04:37:00 15:35:00 Tania Hari 58 2020-04-22 2020-04-24 [facility] [id number] 04:37:00 15:35:00 Tania Hari 58 2020-04-23 2020-04-23 Outpatient Yunas, [facility] [id number] 11:30:00 11:30:00 Tania Hari 16 2020-04-21 2020-04-21 Outpatient Yunas, [facility] [id number] 14:00:00 23:59:59 Tania Hari 21 2020-04-21 2020-04-21 Outpatient Yunas, [facility] [id number] 12:30:00 23:59:59 Tania Hari 18 2020-04-16 2020-04-16 Outpatient Yunas, [facility] [id number] 10:00:00 23:59:59 Tania Hari 15 2020-04-09 2020-04-09 Outpatient Yunas, [facility] [id number] 09:00:00 23:59:59 Tania Hari 14 2020-04-07 2020-04-08 Outpatient [facility] [id number] 10:38:18 10:38:18 05 2020-03-26 2020-03-26 Outpatient Yunas, [facility] [id number] 15:30:00 23:59:59 Tania Hari 11 2020-03-26 2020-03-26 Outpatient Yunas, [facility] [id number] 15:15:00 23:59:59 Tania Hari 12 2020-03-19 2020-03-19 Outpatient Yunas, [facility] [id number] 11:00:00 11:00:00 Tania Hari 10 2020-03-19 2020-03-19 Outpatient VISIT, [facility] [id number] 10:30:00 10:30:00 NURSE TMO 09 2020-02-06 2020-02-06 Outpatient Yunas, [facility] [id number] 11:00:00 23:59:59 Tania Hari 06 2020-02-06 2020-02-06 Outpatient Yunas, [facility] [id number] 10:30:00 23:59:59 Tania Hari 07 2020-01-16 2020-01-17 Outpatient [facility] [id number] 22:45:35 22:45:35 2020-01-09 2020-01-09 Outpatient Yunas, [facility] [id number] 08:45:00 23:59:59 Tania Hari 2020-01-01 2020-01-01 Outpatient Ebony, [facility] [id number] 13:08:10 16:35:00 Whitney 2020-01-01 2020-01-01 Emergency E [id number] 13:08:00 13:08:00 2019-12-12 2019-12-12 Outpatient Yunas, [facility] [id number] 10:30:00 23:59:59 Tania Hari 2019-12-12 2019-12-12 Outpatient Yunas, [facility] [id number] 10:00:00 23:59:59 Tania Hari 2019-10-31 2019-10-31 Outpatient Yunas, [facility] [id number] 09:45:00 23:59:59 Tania Hari 2019-10-08 2019-10-09 Outpatient [facility] [id number] 06:25:08 06:25:08 2019-10-08 2019-10-09 Outpatient [facility] [id number] 06:23:31 06:23:31 2019-10-03 2019-10-03 Outpatient Yunas, MHMG MHMG [id number] 11:00:00 23:59:59 Tania Hari 2019-10-03 2019-10-03 Outpatient Yunas, MHMG MH[facility] [id number] 10:30:00 23:59:59 Tania Hari 2018-03-02 2018-03-02 [facility] [id number] [facility] 15:45:00 15:45:00 [facility] 2018-02-22 2018-02-22 [facility] [id number] [facility] [address] 15:15:00 15:15:00 [facility] 2018-01-31 2018-01-31 [facility] [id number] [facility] 10:30:00 10:30:00 [facility] 2018-01-18 2018-01-18 [facility] [id number] [facility] [address] 10:00:00 10:00:00 [facility] 2018-01-11 2018-01-11 [facility] [id number] [facility] [address] 14:00:00 14:00:00 [facility] 2018-01-04 2018-01-04 [facility] [id number] [facility] [address] 13:30:00 13:30:00 [facility] 2017-12-28 2017-12-28 [facility] [id number] [facility] [address] 16:00:00 16:00:00 [facility]ary [facility] 2017-12-15 2017-12-15 [facility] [id number] 15:15:00 15:15:00 [facility] 2017-11-30 2017-11-30 [facility] [id number] 10:20:00 10:20:00 [facility] 2017-11-28 2017-11-28 [facility] [id number] 16:00:00 16:00:00 [facility] Results Test Description Test Time Test Comments Results Result Sour e Comments HEMATOLOGY 2020-04-23 9.6 [facility] 01:52:00 [place] HEMATOLOGY 2020-04-23 29.2 [facility] 01:52:00 [place] BLOOD BANK RESULTS 2020-04-22 Negative [facility] 10:46:00 (04/22/20 5:46 [facility]) HEMATOLOGY 2020-04-22 9.0 [facility] 10:46:00 [place] HEMATOLOGY 2020-04-22 4.48 [facility] 10:46:00 [place] HEMATOLOGY 2020-04-22 11.7 [facility] 10:46:00 [place] HEMATOLOGY 2020-04-22 35.3 [facility] 10:46:00 [place] HEMATOLOGY 2020-04-22 78.9 [facility] 10:46:00 [place] HEMATOLOGY 2020-04-22 10:46:00 Test Item Value Reference Range Interpretation Comme nts MCH (test code = MCH) 26.2 pg 27.0-31.0 [facility] WuspdmzWPGYTBYVVT0354-79-61 10:46:0033.1[facility] 2020-04-22 10:46:0015.3[facility] LfclmatBPZQHBBLRU9576-33-03 10:46:89108Kdqkzigk MendocmQWICTEWHNV9200-21-38 10:46:008.3[facility] WzjyarrANQXNNHEDB1998-89-36 10:46:0058.8[facility] XfqryonCKNYVTETAK3429-80-72 10:46:0033.5[facility] [place] ZUGPHJLOPB3182-81-66 10:46:005.9[facility] LjezsfyWMXFFVXIDJ5698-86-60 10:46:001.3 [facility] ZywnjicZLLWJKJDBT5991-64-71 10:46:000.5[facility]ann[facility]Y 2020-04-22 10:46:005.3[facility] JdlcgmeAFSTEMSPSA7227-00-04 10:46:003.0[facility] BukvsaqELCLLTADFG3103-86-21 10:46:000.5[facility] MdwligoOCHAVIAGHH8704-37-49 10:46:000.1[facility] NsfsdkvSFPYXJZLQA5112-24-93 10:46:001+ *ABN*(04/22/20 5:46 AM)[facility] GbemjjhTFYFDLKHFL1362-76-86 10:46:00Negative *NA*(04/22/20 5:46 AM) [facility] WblwikrSYVNTFEOPZ4735-07-24 10:46:00Negative *NA*(04/22/20 5:46 AM) [facility] GxhiraiBTFFTWZZMZ0153-33-31 10:46:00Non-Reactive *NA*(04/22/20 5:46 AM) [facility] TxxkizpYTPKEZZFJW7726-14-00 09:56:00Not Detected (04/22/20 4:56 AM) [facility]ann[facility]UCO[facility] NRWH5696-27-18 13:38:0089[facility] 2020-01-09 13:38:008.8[facility] OqqqdpjJUREKXSWLG6434-42-65 13:38:004.24[facility] RnjpfelHTMZBWGGFA9314-45-78 13:38:0011.7[facility] UzsffoiWSGBDEMHTC0491-01-12 13:38:0035.5[facility] HcasmbnMTVGIPNHEP3165-53-76 13:38:0083.7[facility] [place] WOAYXAWOBD0124-80-43 13:38:00 Test Item Value Reference Range Interpretation Comments MCH (test code = MCH) 27.6 pg 27.0-33.0 [facility] OwnkosuDQBWCVHSVO7328-34-96 13:38:0033.0[facility]ann[facility]MATOLOGY 2020-01-09 13:38:0013.7[facility] VdktboxUKWRSVDNBC5970-85-84 13:38:90986Xpmvljbj AferrvgJZKEZNETIU3811-83-06 13:38:0010.2[facility] TbazfkuPLJGJYEBQH7969-38-49 13:38:705334Dassafsk NsthhfpZSEJUZPFOM8282-76-03 13:38:154909Tqncfjuf [place] HCZWAUNAJE2642-59-26 13:38:12051Tafmnaxo DkngjiwQPEQUQXETX8157-60-36 13:38:0088 [facility] UzndzidCWNDCPUTQF6757-76-58 13:38:0044[facility]ann[facility]MAT[facility]Y 2020-01-09 13:38:0066.1[facility] IogyscbYMDMSNXEXN2854-08-20 13:38:0028.0[facility] QadiiirXFEUEMQEVL5361-77-89 13:38:004.4[facility] NzzplrtXEBGTQVLJS2594-47-82 13:38:001.0[facility] PicrrfnBWQWEPLUBE9335-40-03 13:38:000.5[facility] HermannCHEM HUXMI8980-96-24 19:56:0073[facility] HermannCHEM QDKBG6142-54-16 19:56:008[facility] HermannCHEM ZPTYH5851-65-22 19:56:000.51[facility] HermannCHEM NLCID3003-02-83 19:56:10968Hkegbpod HermannCHEM GTEGZ3859-21-47 19:56:004.1[facility] HermannCHEM RAJEO1273-26-04 19:56:91041Ofmxwaoa HermannCHEM VEHDP9683-09-73 19:56:0024 [facility]annCHEM PXURX6203-95-48 19:56:008.9[facility]annCHEM PANEL 2020-01-01 19:56:007.7[facility] HermannCHEM TKHGN7449-21-51 19:56:003.1[facility] HermannCHEM OOPSW7001-82-18 19:56:0026[facility] HermannCHEM LHNXX6220-70-84 19:56:0018[facility] HermannCHEM REQTN0085-46-48 19:56:68546Jmzisezb HermannCHEM TNFBO0687-47-37 19:56:000.5[facility] HermannCHEM STWHN0962-78-94 19:56:0014.1 [facility]annCHEM XWUXF0890-15-04 19:56:00 Test Item Value Reference Range Interpretation Comments B/C Ratio (test code = B/C Ratio) 16 1 6-25 [facility]annCHEM HELLU3368-86-40 19:56:004.6[facility] HermannCHEM PANEL 2020-01-01 19:56:00 Test Item Value Reference Range Interpretation Comments A/G Ratio (test code = A/G Ratio) 0.7 1 0.7-1.6 [facility] HermannCHEM UKYJI4045-45-46 19:56:77175Jcllydpl HermannHEMATOLOGY 2020-01-01 19:25:0078.5[facility] OzkeqopSTJEUGXPTD1775-87-80 19:25:0017.6[facility] VhlbggeCOFJQODHLX1460-25-98 19:25:003.4[facility] NnyenemFPGPEZKSQN7702-92-36 19:25:000.3[facility] QinzdkgOXQLTBQWSO8752-34-60 19:25:000.2[facility] [place] PKMYXLJUGR1960-29-84 19:25:008.3[facility] VgkhqdaUINUCBMTVU9064-65-55 19:25:001.9 [facility] DphylubHQHOXEXTDZ4122-86-19 19:25:000.4[facility]annHEMATOLOGY 2020-01-01 19:25:0010.5[facility] RixwdwvZYEMOCCWSA8960-46-07 19:25:004.55[facility] ZifknmdFOGPZSHAPM9352-01-37 19:25:0012.9[facility] CstddctYHKMBXKUVS3184-36-00 19:25:0038.4[facility] UymxjuhDJGWWMJHIS3110-82-22 19:25:0084.3[facility] [place] QDIOWHRBIN0609-39-18 19:25:00 Test Item Value Reference Range Interpretation Comments MCH (test code = MCH) 28.3 pg 27.0-31.0 [facility] EksuuxhWWJIBKJIXY9631-71-19 19:25:0033.6[facility]annHEMATOLOGY 2020-01-01 19:25:0014.5[facility] RzwffhoJABWFPBYKF9880-34-00 19:25:82425Wyuhipbr SwqyblwJCKNVXUKFE3506-56-56 19:25:007.8[facility] [place]
--- NOTE | 2020-05-01 18:28 | EDPHYS ---
Physician Documentation [facility] Name: Ingrid Frey Age: 25 yrs Sex: Female : 1995 Arrival Date: 05/01/2020 Time: 17:53 Bed 3 Private MD: ED Physician Elijah Bang HPI: 05/01 18:21 This 25 yrs old Female presents to ER via Ambulatory with complaints of rn Numbness Of Face. 18:21 This 25 yrs old Female presents to ER via Ambulatory with complaints of rn Numbness Of Face, weak face. 18:21 The patient's problem is reported as a facial droop, weakness, in the right upper rn extremity, in the right lower extremity, in the right side of face. Onset: The symptoms/episode began/occurred this morning. Duration: The episode is continuous. The symptoms are alleviated by nothing. The symptoms are aggravated by nothing. Severity of symptoms: At their worst the symptoms were mild in the emergency department the symptoms are unchanged. The patient has not experienced similar symptoms in the past. The patient has not recently seen a physician. Reports sensory changes recently over past few days, today noticed right facial weakness, not able to close right eye, + right lower facial droop. No other symptoms. Just had baby, under a lot of stress. She states seems like bells palsy because multiple family members have had it, just wanted someone else to tell her that it was.. 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 - Social history:: Smoking status: Patient denies any tobacco usage or history of. - Family history:: not pertinent. - Hospitalizations: : No recent hospitalization is reported. ROS: 18:21 Constitutional: Negative for fever, chills, and weight loss, Eyes: Negative for injury, rn pain, redness, and discharge, Neck: Negative for injury, pain, and swelling, Cardiovascular: Negative for chest pain, palpitations, and edema, Respiratory: Negative for shortness of breath, cough, wheezing, and pleuritic chest pain, Abdomen/GI: Negative for abdominal pain, nausea, vomiting, diarrhea, and constipation, Back: Negative for injury and pain MS/Extremity: Negative for injury and deformity, Skin: Negative for injury, rash, and discoloration, Neuro: Negative for headache, and seizure Exam: 18:21 Constitutional: This is a well developed, well nourished patient who is awake, alert, rn and in no acute distress. Head/Face: Normocephalic, atraumatic. Eyes: Pupils equal round and reactive to light, extra-ocular motions intact. Conjunctiva and sclera are non-icteric and not injected. Cornea within normal limits. Periorbital areas with no swelling, redness, or edema. Cardiovascular: Regular rate and rhythm. No pulse deficits. Respiratory: No increased work of breathing, no retractions or nasal flaring. Skin: Warm, dry MS/ Extremity: Pulses equal, no cyanosis. Neuro: Awake and alert, GCS 15, oriented to person, place, time, and situation. + right upper and lower facial droop, unable to close right eye completely. Motor strength 5/5 in all extremities. Sensory grossly intact. Cerebellar exam normal. Vital Signs: 18:05 BP 155 / 98; Pulse 74; Resp 15; Temp 99.3(TE); Pulse Ox 99% on R/A; Height 5 ft. 1 in. ss (154.94 cm); Pain 1/10; MDM: 18:13 Patient medically screened. rn 18:21 Differential diagnosis: bells palsy. Data reviewed: vital signs, nurses notes, and as a rn result, I will discharge patient. Counseling: I had a detailed discussion with the patient and/or guardian regarding: the historical points, exam findings, and any diagnostic results supporting the discharge/admit diagnosis, the need for outpatient follow up, to return to the emergency department if symptoms worsen or persist or if there are any questions or concerns that arise at home. Special discussion: I discussed with the patient/guardian in detail that at this point there is no indication for admission to the hospital. It is understood, however, that if the symptoms persist or worsen the patient needs to return immediately for re-evaluation. ED course: Pt with Raymundo's palsy, will dc home with antivirals and steroids, with neuro f/u. . 18:21 ED course: Pt not .. ED course: Told to tape eye shut and use artifical rn tears. . Administered Medications: No medications were administered Disposition: 05/01/20 18:28 Discharged to Home. Impression: Raymundo's palsy. - Condition is Stable. - Discharge Instructions: Raymundo Palsy, Adult. - Prescriptions for valacyclovir 500 mg Oral tablet - take 1 tablet by ORAL route 2 times per day for 5 days; 10 tablet. Prednisone 20 mg Oral Tablet - take 1 tablet by ORAL route as directed for 10 days Take 3 tablets oral once daily for 5 days, then 2 tablets oral once daily for 3 days, then 1 tablet oral once daily for 2 days, for total of 10 days.; 23 tablet. - Medication Reconciliation Form, Thank You Letter, Antibiotic Education, Prescription Opioid Use form. - Follow up: Wai Sanders MD; When: As needed; Reason: Recheck today's complaints, Re-evaluation by your physician. - Problem is new. - Symptoms are unchanged. Signatures: Elijah Bang MD MD rn Smirch, Shelby, RN RN Maci Gonzalez RN RN jl7 Corrections: (The following items were deleted from the chart) 18:39 18:28 05/01/2020 18:28 Discharged to Home. Impression: Raymundo's palsy. Condition is jl7 Stable. Forms are Medication Reconciliation Form, Thank You Letter, Antibiotic Education, Prescription Opioid Use. Follow up: Wai Sanders; When: As needed; Reason: Recheck today's complaints, Re-evaluation by your physician. Problem is new. Symptoms are unchanged. rn
--- NOTE | 2020-05-01 18:28 | ER ---
Nurse's Notes [facility] Name: Ingrid Frey Age: 25 yrs Sex: Female : 1995 Arrival Date: 05/01/2020 Time: 17:53 Bed 3 Private MD: Diagnosis: Raymundo's palsy Presentation: 05/01 18:06 Chief complaint: Patient states: "I noticed my tongue wasn't feeling right around noon ss yesterday, and today I was running errands and I noticed the right side of my face was numb and now it's doing this" R sided facial droop noted. Coronavirus screen: Client denies travel out of the [place] in the last 14 days. Ebola Screen: Patient denies exposure to infectious person. Patient denies travel to an Ebola-affected area in the 21 days before illness onset. Initial Sepsis Screen: Does the patient meet any 2 criteria? No. Patient's initial sepsis screen is negative. Does the patient have a suspected source of infection? No. Patient's initial sepsis screen is negative. Risk Assessment: Do you want to hurt yourself or someone else? Patient reports no desire to harm self or others. Onset of symptoms was May 01, 2020 at 12:00. 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 - Social history:: Smoking status: Patient denies any tobacco usage or history of. - Family history:: not pertinent. - Hospitalizations: : No recent hospitalization is reported. Screenin:13 Abuse screen: Denies threats or abuse. Nutritional screening: No deficits noted. tw2 Tuberculosis screening: No symptoms or risk factors identified. Fall Risk None identified. Assessment: 18:10 General: Appears in no apparent distress. uncomfortable, Behavior is calm, cooperative, jl7 appropriate for age. Pain: Denies pain. Neuro: Level of Consciousness is awake, alert, obeys commands, Oriented to person, place, time, situation, Water Tender are equal bilaterally Moves all extremities. Full function Gait is steady, Speech is normal, Intact. Cardiovascular: Patient's skin is warm and dry. Respiratory: Airway is patent Respiratory effort is even, unlabored, Respiratory pattern is regular, symmetrical. GI: No signs and/or symptoms were reported involving the gastrointestinal system. : No signs and/or symptoms were reported regarding the genitourinary system. EENT: No signs and/or symptoms were reported regarding the EENT system. Derm: Skin is pink, warm \\T\\ dry. Musculoskeletal: No signs and/or symptoms reported regarding the musculoskeletal system. Vital Signs: 18:05 BP 155 / 98; Pulse 74; Resp 15; Temp 99.3(TE); Pulse Ox 99% on R/A; Height 5 ft. 1 in. ss (154.94 cm); Pain 1/10; ED Course: 17:53 Patient arrived in ED. ag5 18:05 Arm band placed on right wrist. ss 18:08 Triage completed. ss 18:09 Bed in low position. Call light in reach. Pulse ox on. NIBP on. tw2 18:13 Maci Gonzalez, CHRISTINE is Primary Nurse. jl7 18:13 Elijah Bang MD is Attending Physician. rn 18:23 No provider procedures requiring assistance completed. Patient did not have IV access jl7 during this emergency room visit. 18:28 Wai Sanders MD is Referral Physician. rn Administered Medications: No medications were administered Outcome: 18:28 Discharge ordered by . rn 18:39 Discharged to home ambulatory. jl7 18:39 Condition: stable 18:39 Discharge instructions given to patient, family, Instructed on discharge instructions, follow up and referral plans. medication usage, Demonstrated understanding of instructions, follow-up care, medications, Prescriptions given X 2. 18:39 Patient left the ED. jl7 Signatures: Elijah Bang MD MD rn Smirch, Shelby, RN RN Aminah Yun RN RN tw2 Maci Gonzalez RN RN jl7 Shan Parsons ag5
[2020-05-01 18:55] VITALS: BP 155/98; TEMP 99.3; O2SAT 99
== END 2020-05-01 18:39 | disposition home or self-care (01) ==
LOC: ER 17:53
DX: G51.0 Bell's palsy (principal)
CPT/HCPCS: 99283